=== PATIENT | female | born 1965 | race Caucasian/White ===

== ENCOUNTER → 2022-05-14 11:02 | Outpatient (CLI) | payer OTHER, SELFPAY ==
[2022-05-14 13:29] LABS: COVID19 -Nasal RAPID Negative (Negative)
== END ==
PROVIDERS: Referring Provider Orthopaedic Surgery; Visit Provider Orthopaedic Surgery
DX: Z20.822 Contact with and (suspected) exposure to COVID-19 (principal)
CPT/HCPCS: 87635; C9803

== ENCOUNTER 2022-05-16 12:30 | Day surgery (SDC) | payer OTHER, SELFPAY ==
[2022-05-07 13:33] VITALS: BMI 38.2
[2022-05-16] VITALS (13 sets, daily range): BP systolic 133–168; BP diastolic 50–95; PULSE 77–95; RESP 12–20; TEMP 35.9–36.9; O2SAT 96–99; BMI 38.2
--- NOTE | 2022-05-16 06:00 | DI.RAD.S_ITS ---
PROCEDURE: XR KNEE LT 1TO2V INDICATIONS: L TKA TECHNIQUE: Two views of the knee acquired. COMPARISON: None. FINDINGS: Bones: Patient is status post total knee arthroplasty. Hardware components are in expected positions. Visualized bony structures are intact. Soft tissues: Overlying postoperative changes are noted. IMPRESSION: Status post total knee arthroplasty with expected postoperative findings. Approved by: Raul Thomas M.D. on 05/16/2022 at 16:57
[2022-05-16] MEDS: ACETAMINOPHEN 325 MG TABLET 975 MG PO (13:29)
[2022-05-16] MEDS: CELECOXIB 200 MG CAPSULE PO (13:29)
--- NOTE | 2022-05-16 14:16 | SUR.PREOP ---
Left femoral nerve block completed by Dr Bullock. See anesthesia record.
[2022-05-16] MEDS: CEFAZOLIN 2 GM/100 ML PREMIX 100 ML IV ×2 (14:40→22:57)
[2022-05-16] MEDS: TRANEXAMIC ACID 1,000 MG VIAL 2000 MG INJ (14:45)
--- NOTE | 2022-05-16 14:57 | SUR.OPER ---
Supine on padded OR bed. Pillow under head, arms secured on padded armboards <90 degree abduction. Safety belt across torso. Non-operative leg secured with tape over blanket over lower leg. Operative leg secured in [place]. Foam padded brace at thigh of operative leg.
[2022-05-16] MEDS: MORPHINE 4 MG/ML INJ INJ (15:09)
[2022-05-16] MEDS: BUPIVACAINE LIPOSOME 266 MG/20 ML VIAL INJ (15:09)
[2022-05-16] MEDS: BUPIVACAINE 0.5% W/ EPI (PF) 30 ML VIAL INJ (15:20)
--- NOTE | 2022-05-16 16:15 | PM.OP.1 ---
Operative Date/Time/Diagnoses Date of procedure: 05/16/22 Time of procedure: 16:15 Pre-op diagnosis: Left knee osteoarthritis Post-op diagnosis: same Procedure & Clinicians Procedure: Left total knee replacement Same procedure as scheduled: Yes Indications: The patient has had progressively worsening left knee pain with radiographic changes consistent with arthritis. Non-operative management has failed and the patient has requested total knee replacement. The risks, benefits and alternatives to surgery were discussed with the patient prior to proceeding. Risks discussed included, but were not limited to, failure to relieve pain, stiffness, infection, nerve damage, deep venous thrombosis, pulmonary embolism, stroke, coma, heart attack, permanent paralysis and , as well as the potential need for eventual revision of the prosthetic. Surgeon: Gómez Edwards Rn Neurology: Citlaly Hathaway Yes if Unassisted: No Anesthesia Type: General, Spinal and Local Operative Notes Findings: Severe medial and moderate patellofemoral osteoarthritis. Closure Type: primary Specimen(s): none sent Prosthetic devices, grafts, tissues, transplants, or devices: Implants used in this procedure were manufactured by the [employer] and [email or web address] and included the BCS II Journey total knee replacement with a size 7 left non porous tibial base plate, a 9 mm cross-linked polyethylene tibial insert, a size 8 Oxinium left femoral component and a 38 mm oval Cami II patella. Applied: implant(s) Estimated Blood Loss (mL): 25 Blood products transfused: none Tourniquet time (min): 56 Procedure in detail: The patient was seen in the pre-operative area, where the left knee was identified as the operative site and this was marked with my initials. The patient received pre-operative antibiotics, and was taken to the operating room and placed on the operative table in the supine position. After satisfactory anesthesia, a radio time buyer out was performed. The left leg was encircled with a tourniquet about the proximal thigh, and the leg was prepared from the toes to the tourniquet with ChloroPrep in the usual fashion and draped through sterile drapes. The leg was elevated and exsanguinated with Eschmark bandage and the tourniquet inflated to 250 mmHg pressure. The knee was approached through an approximately 18 cm incision centered over the patella and carried into the knee through a medial parapatellar arthrotomy. The anterior osteophytes and soft tissues were removed. The rotational landmarks of Rockwall's line and the transepicondylar axis were marked on the femur with electrocautery, and intramedullary guide holes for the femur and tibia were created. The distal femoral cut was made in 6 degrees of valgus using the intramedullary guide at the primary cut setting. The proximal tibial cut was then made using the intramedullary guide, taking 9 mm of bone off the less involved side. The extension gap was checked and the rotation of the femoral component confirmed with the gap balancing blocks. The anterior, posterior and chamfer cuts were then made. The posterior osteophytes and soft tissues were then removed. The posterior capsule was injected with part of a mixture of 60 ml 0.25% Marcaine mixed with 20 ml Exparel and 4 mg of morphine for post-operative pain control. The remainder of this mixture was injected into the capsule and subcutaneous tissues during cement curing. The tibia was prepared with the rotation set by an extra medullary guide. Trial tibial and femoral components were then placed and the intercondylar notch cut through the femoral trial. Range of motion was 0-135 degrees, with good stability throughout the range. The patella was then cut to accommodate the patellar prosthetic. There was no need for a lateral release. The trials were then removed, and the femoral hole plugged with a bone plug. The bone was prepared with pulsatile lavage, and dried with a sponge. Cement was applied and the final prosthetics placed. Excess cement was removed during and after cement curing. After confirming there was no extruded cement posteriorly, the final tibial insert was placed. The knee was copiously irrigated and the tourniquet deflated. Hemostasis was obtained. The capsule was closed with interrupted # 2 polyester sutures. The subcutaneous layer was closed with 3-0 Vicryl, and the skin with a running 3-0 V-Lock suture and Dermabond. An Aquacel Ag dressing was applied and the patient was taken to recovery having tolerated the procedure well. The services of oRmeo Ignacio were required as a skilled licensed physical therapy assistant to provide exposure, positioning and retraction to protect vital structures during this procedure. Without the assistance of a skilled certified ophthalmic surgical assistant the procedure could not have been performed safely and expediently. Complications: none Post-operative Condition: stable Disposition: PACU Plan for aftercare: The patient will be maintained on a standard total knee replacement protocol with weight bearing as tolerated. The patient will receive aspirin and sequential compression devices for DVT prophylaxis. The patient will be discharged home when safe for the home environment.
[2022-05-16] MEDS: PROGESTERONE, MICRONIZED 100 MG CAPSULE PO (18:27)
[2022-05-16] MEDS: LACTATED RINGERS 1,000 ML 100 ML IV (18:27)
[2022-05-16] MEDS: ATORVASTATIN 20 MG TABLET PO (18:27)
[2022-05-16] MEDS: OXYCODONE IR 5 MG TABLET PO (18:36)
[2022-05-16] MEDS: ACETAMINOPHEN 325 MG TABLET 650 MG PO (18:36)
[2022-05-16] MEDS: HYDROMORPHONE 0.5 MG INJ 0.2 MG IV (19:48)
[2022-05-16] MEDS: lisinopriL 10 MG TABLET PO (21:26)
[2022-05-16] MEDS: ASPIRIN EC 81 MG TABLET PO (21:26)
[2022-05-16] MEDS: IBUPROFEN 400 MG TABLET PO (21:26)
[2022-05-16] MEDS: DOCUSATE 100 MG CAPSULE PO (21:26)
--- NOTE | 2022-05-16 23:54 | PC.NURSE ---
Patient is alert and oriented. Breath sounds CTA with RA sat of 97%. HRR. Denies nausea. BT hypoactive and has not yet passed flatus. Had not voided yet following surgery but did get up to BSC at 2245 and voided 1150cc urine; denies dysuria. Is able to turn herself in bed and was able to get out of bed with 1 assist + walker. CMS in left leg is intact; denies numbness, has good pulse and able to lift leg out of bed but has limited ROM in knee. Aquacel dressing wrapped with guero to left knee is CDI. Had 7/10 pain at change of shift and was medicated with IV Dilaudid after po oxycodone was ineffective and now pain has been well controlled. Is wearing bilateral calf SCD's. Fall risk score is moderate and patient calls appropriately for assistance so alarm is not currently in use.
[2022-05-17] VITALS (7 sets, daily range): BP systolic 87–133; BP diastolic 35–59; PULSE 67–88; RESP 16; TEMP 36.1–36.9; O2SAT 95–97
[2022-05-17] MEDS: IBUPROFEN 400 MG TABLET PO ×4 (00:29→12:15)
[2022-05-17] MEDS: ACETAMINOPHEN 325 MG TABLET 650 MG PO ×3 (00:29→11:10)
[2022-05-17] MEDS: OXYCODONE IR 10 MG TABLET PO (04:00)
[2022-05-17] MEDS: SODIUM CHLORIDE 0.9% FLUSH 10 ML IV ×2 (06:23→08:11)
[2022-05-17] MEDS: CEFAZOLIN 2 GM/100 ML PREMIX 100 ML IV (06:23)
[2022-05-17] MEDS: THYROID, PORK 30 MG TABLET 180 MG PO (06:23)
[2022-05-17 07:00] LABS: Hematocrit 36.6 % (36-46)
--- NOTE | 2022-05-17 07:48 | PM.DS.1 ---
History of Present Illness History of Present Illness Date Patient Seen: 05/17/22 Time Patient Seen: 07:48 Chief complaint: L TKA Narrative: The history and physical is contained in the chart in a previously completed note. Please refer to that note for this information. Discharge Providers Provider Date of admission: May 16, 2022 Discharge Date: 05/17/22 Consults: 05/16/22 16:59 Consult to Discharge Planning Routine Comment: Consult to Physical Therapy Evaluate & Treat Comment: Physician Instructions: postop TKA protocol Discharge provider: Gómez Edwards MD Summary Hospital Course Discharge Diagnosis: Osteoarthritis of the left knee Hospital Course: The patient was admitted to the hospital and taken directly to the operating room on May 16, 2022. She underwent a left total knee replacement without complications. On postoperative day 1 she was comfortable. She had been able to ambulate to the bathroom without assistance. At the time of this dictation it is anticipated she will be discharged later this morning. Status at Discharge Cognitive/behavioral status at discharge: at baseline, oriented Functional status at discharge: uses cane/walker Overall status at discharge: patient is progressing back to baseline Time Spent with Patient Time spent: Less than 30 minutes Exam Vital Signs (past 8 hours): - 05/17/22 00:30 05/17/22 06:29 Temperature 97.8 F 98.5 F Pulse Rate 67 73 Respiratory Rate 16 16 Blood Pressure 133/51 L 114/59 L Pulse Oximetry 95 95 Oxygen Flow Rate 0 0 Oxygen Delivery Method Room Air Oxygen Flow Rate 0 Narrative Exam Narrative: Left knee wound is dressed with no drainage on the bandage. Calf is soft. Light touch and motion are intact in the left lower extremity. Objective Labs Result Diagrams: 05/17/22 06:29 Labs: Laboratory Results - last 24 hr 05/17/22 06:29 Hgb 12.0 Hct 36.6 PFSH Medical History (Updated 05/07/22 @ 14:17 by Rachele Sahni RN) ADHD Anxiety Depression GERD (gastroesophageal reflux disease) HLD (hyperlipidemia) HTN (hypertension) IBS (irritable bowel syndrome) Osteoarthritis Surgical History (Updated 05/07/22 @ 14:17 by Rachele Sahni RN) Cataract extraction status, left eye (2020) History of hysteroscopy (2010) Hx of appendectomy (1991) Hx of arthroscopy of left knee (2005) Hx of cholecystectomy (1994) Hx of hernia repair (1997) Hx of LASIK (1998) Hx of repair of left rotator cuff (2014) Hx of repair of right rotator cuff (2011) Hx of thyroidectomy (2014) Status post tonsillectomy and adenoidectomy (1974) Social History household members: spouse Smoking Status: Never smoker alcohol intake: current Discharge Assessment & Plan Assessment and Plan Assessment: Stable postoperative day 1 status post left total knee replacement. She has good pain control. She is showing good return of function. Plan of Treatment: Discharge to home today. The patient was given her postoperative pain medications at her preoperative appointment. She will resume all her preoperative medications. She will use aspirin 81 mg b.i.d. for DVT prophylaxis. She will follow up at my office in 10-14 days. Discharge Plan Discharge Plan Patient Disposition: Home Discharge orders & Medications Discharge Orders: Discharge (Order); Ordered 05/17/22 Ordered By: Gmóez Edwards Prescriptions: New acetaminophen 325 mg Tablet 650 mg PO Q6HR Qty: 250 0RF aspirin 81 mg Tablet,Delayed Release (Dr/Ec) 81 mg PO BID Qty: 84 0RF oxycodone 5 mg Tablet 5 mg PO Q4H PRN (Reason: Pain, Moderate (4-6)) Qty: 40 0RF Continued atorvastatin 20 mg Tablet 20 mg PO QPM estradiol 0.075 mg/24 hr Patch Semiweekly 1 patch TRANSDERMAL 2XW Rx Instructions: apply 1 patch for 3 days alternating with 1 patch for 4 days each week for 3 wks per 4-wk cycle cetirizine [Zyrtec] 10 mg Tablet 10 mg PO DAILY ibuprofen 200 mg Capsule 400 mg PO Q6H PRN (Reason: Pain) lisinopril 10 mg Tablet 10 mg PO QPM progesterone micronized 100 mg Capsule 100 mg PO QPM Rx Instructions: off 7 days; repeat cycle bupropion HCl 300 mg Tablet Extended Release 24 Hr 300 mg PO QAM [place] Thyroid 180 mg Tablet 180 mg PO QPM Follow up/Referrals: Gómez Edwards MD [Physician] - As previously scheduled Diet/Activity/Treatments Diet: Diet as Tolerated and Regular Activity: You may bear weight as tolerated on your left leg. Cold/Heat Therapy: You may apply ice to the left knee for 15 minutes of every hour for pain control. Skin/Wound/Dressing Care Report to your healthcare provider any signs of infection, such as:: chills, fever, night sweats, increased pain, unusual drainage and unusual redness Dressing: You may remove the Ji wrap 3 days after surgery and shower normally with the deeper dressing in place. Leave that dressing in place until your postoperative follow-up. If the central strip of the dressing should becomes saturated with either water or blood, please call the office to have it evaluated. Visit Report/Discharge Packet Instructions: DI for Knee Replacement Stand Alone Forms: Surgery Discharge Discharge Data Attending Provider: Gómez Edwards Quality VTE Deep Vein Thrombosis/Pulmonary Embolism Present on Admission: No
[2022-05-17] MEDS: OXYCODONE IR 5 MG TABLET PO ×2 (08:09→12:15)
[2022-05-17] MEDS: polyethylene glycoL 3350 17 GM POWD.PACK PO (08:10)
[2022-05-17] MEDS: LORATADINE 10 MG TABLET PO (08:10)
[2022-05-17] MEDS: buPROPion XL 150 MG TAB 300 MG PO (08:10)
[2022-05-17] MEDS: DOCUSATE 100 MG CAPSULE PO (08:10)
[2022-05-17] MEDS: ASPIRIN EC 81 MG TABLET PO (08:10)
--- NOTE | 2022-05-17 09:51 | PT.IIE ---
Current Diagnoses Unilateral primary osteoarthritis, left knee (05/16/22) Surgery Performed Operation Date: 05/16/22 14:30 Actual Procedures p Total Knee Arthroplasty(Left) - Gómez Edwards MD Surgical History (Last Updated 05/07/22 @ 14:17 by Rachele Sahni, RN) Cataract extraction status, left eye (2020) History of hysteroscopy (2010) Hx of appendectomy (1991) Hx of arthroscopy of left knee (2005) Hx of cholecystectomy (1994) Hx of hernia repair (1997) Hx of LASIK (1998) Hx of repair of left rotator cuff (2014) Hx of repair of right rotator cuff (2011) Hx of thyroidectomy (2014) Status post tonsillectomy and adenoidectomy (1974) Medical History (Last Updated 05/07/22 @ 14:17 by Rachele Sahni, TASIA) ADHD Anxiety Depression GERD (gastroesophageal reflux disease) HLD (hyperlipidemia) HTN (hypertension) IBS (irritable bowel syndrome) Osteoarthritis Physical Therapy Inpatient Evaluation/Re-Eval M1 PT/OT-IP Prior Functional Status Start: 05/17/22 13:32 Freq: NEEDED Status: Active Protocol: Document 05/17/22 09:51 AB (Rec: 05/17/22 13:44 AB [id number]) Medical Review Prior Functional Status Medical History Reviewed Yes Communication able to make needs known Mobility and Gait stated that she is independent with all mobilities and ambulation without AD Social History Household Members spouse Living Arrangements House Number of Floors (Floors) Two Floors Number of Stairs To Enter/Railing? without steps to enter the house Has 2 steps down to the studio : L shelving descending Home Environment High Toilet,Walk in Shower Home Equipment Front Wheel Walker,Straight Cane,Crutches,Hand Held Shower Additional Social History Comment pt has an adjustable bed M2 PT-IP Current Condition Start: 05/17/22 13:32 Freq: NEEDED Status: Active Protocol: Document 05/17/22 09:51 AB (Rec: 05/17/22 13:44 AB [id number]) Physical Therapy Current Condition Current Condition Evaluation Date 05/17/22 Treatment Diagnosis s/p L TKA; difficulty in walking Onset Date 05/16/22 M3 PT-IP Subjective Start: 05/17/22 13:32 Freq: NEEDED Status: Active Protocol: Document 05/17/22 09:51 AB (Rec: 05/17/22 13:44 AB [email or web address]) Subjective Physical Therapy Visit Type Type Initial Evaluation Visit Start Time 09:51 Visit Stop Time 10:50 Total Visit Minutes 59 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 of 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 0 Physical Therapy Visit Comments Patient Comments agreeable to do PT Therapy Pain Assessment Pain When Pain Assessed At Rest Pain Present Pain Present Pain Reported Location Left Knee Intensity 4 Scale Used Numeric (0 - 10) Pain Management Techniques Apply Cold,Distraction, Modification of Treatment,Re- positioning,Timing of Activity with Medications M4 PT-IP Mobility and Gait Start: 05/17/22 13:32 Freq: NEEDED Status: Active Protocol: Document 05/17/22 09:51 AB (Rec: 05/17/22 13:44 AB [email or web address]) PT-Bed Mobility Assessment Supine to Sit Supine to Sit Standby Assistance PT-Transfer Assessment Sit to and From Stand Sit to and from Stand Contact Guard Assistance,1 Person Assistance Equipment Transfer Assistive Device Gait Belt,Front Wheeled Walker Orthotic/Prosthetic Devices or Brace: No Transfers Transfer Destination Chair Transfer Technique ambulated Transfer Ability Level of Assist Standby Assistance,Contact Guard Assistance,1 Person Assistance,Use of Upper Extremities Comments Mobility Comments BP in supine: 128/46. heel slide completed prior to mobility and post-op folder provided and discussed with pt and spouse. completed supine to sit SBA. no c/o dizziness. BP checked in sittin/76. completed sit to stand CGA and ambulated in room using FWW CGA ~ 12 ft . pt sat on chair. caregiver training conducted. educated spouse on how to use safety belt and how to assist pt. also educated on stair climbing techniques. spouse was able to put safety belt on pt. assisted pt with sit to stand CGA and ambulated pt ~ 20 ft using fWW CGA. pt completed up/down step using L rail+ SPC with spouse assisting CGA. pt completed x2 sets. pt ambulated in hallway and back to the room ~ 50 ft using FWW SBA. pt then c/o dizziness. BP checked: 87/35. elevated LE and reclined pt. BP checked again : 107/49. NAC in room and informed nurse. positioned pt on the chair with call light and table within reach. Gait Assessment Gait Gait Assistance Required: Standby Assistance,Contact Guard Assist Distance (Feet) 50 Able to Maintain Weight Bearing Status Yes During Gait Assistive Devices Assistive Device Gait Belt,Front Wheeled Walker Orthotic/Prosthetic Devices or Brace: No Gait Deviations General Gait Pattern Antalgic,Decreased Stride Length,Decreased Feet Clearance Factors Limiting Gait Function Factors Limiting Gait Function Decreased Activity Tolerance, Decreased Strength,Limited Range of Motion,Pain,Poor Balance Stair Climbing Assessment Evaluation Level of Assist On Stairs Contact Guard Assistance,1 Person Assistance Devices Stair Climbing Assistive Devices Straight Cane,Left Railing Technique/Endurance Stair Climbing Direction Ascend and Descend Stair Climbing Technique Step to Step Number of Steps Climbed 1 Query Text: Stair Climbing Set # Repetitions (reps) 2 PT-Balance Assessment Sitting Balance and Reactions Static Sitting Balance Ability Normal Dynamic Sitting Balance Ability Good Standing Balance and Reactions Static Standing Balance Ability Fair Dynamic Standing Balance Ability Fair Device Used FWW M5 PT-IP Objective Assessments Start: 05/17/22 13:32 Freq: NEEDED Status: Active Protocol: Document 05/17/22 09:51 AB (Rec: 05/17/22 13:44 AB [email or web address]) Orientation Orientation/Cognition Level of Alertness Alert Orientation Name,Place,Situation Language Function Ability No Deficits Noted Memory Description No Deficits Noted Gross Range of Motion Lower Extremity ROM Assessment Left Impaired Impairments L knee flexion: ~ 80 deg L knee extension: ~ 25 deg less to 0 Strength Lower Extremity Strength Assessment Left Impaired Hip 4-/5 Knee 4-/5 Coordination Assessment Gross Coordination Gross Coordination WNL Sensation Assessment Sensation Gross Sensation WNL Muscle Tone Muscle Tone WNL Yes M6 PT-IP Treatment Start: 05/17/22 13:32 Freq: NEEDED Status: Active Protocol: Document 05/17/22 09:51 AB (Rec: 05/17/22 13:44 AB [email or web address]) Physical Therapy Treatment Exercises Exercises Heel Slides Education Education Provided Precautions,Weight Bearing Status,Post-Op Packet,Safety M7 PT-IP Assessment and Plan Start: 05/17/22 13:32 Freq: NEEDED Status: Active Protocol: Document 05/17/22 09:51 AB (Rec: 05/17/22 13:44 AB [email or web address]) PT Summary Assessment and Plan Potential Rehabilitation Potential Good Status of Condition at Evaluation Evolving Summary Impairments Pain,ROM,Strength,Balance, Coordination,Sensation,Tone, Cognition,Bed Mobility, Transfers,Gait,Activity Tolerance Assessment Summary pt requiring sBA to CGA with mobility using FWW. caregiver training conducted and spouse was able to assist pt at home. Pt just had low BP towards end of PT session with c/o dizziness. pt may go home when medically stable. Goals Bed Mobility Goal Independent Transfer Goal Independent,Front Wheeled Walker Gait Goal Independent,Front Wheel Walker Gait Distance 200 Other Goals up/down 2 steps L rail + SPC SBA Days to Meet Goals 5 Frequency of Treatment Frequency Of Treatment Twice a Day Treatment Plan Physical Therapy Treatment Plan Bed Mobility Training,Transfer Training,Gait Training, Therapeutic Exercise,Balance Retraining,Post Op Education, Discharge Planning,Hot or Cold Pack,Neuromuscular Re-ed, Coordination Retraining,Manual Therapy Weight Bearing Status Weight Bearing Status Weight Bear as Tolerated Allowed Weight Bearing Amount (enter % LLE WBAT or #) (%) Recommendations To Nursing Amount of Assist Needed 1 Person Assist Discharge Recommendations PT Discharge Recommendations Home with Assistance, Outpatient PT Transportation Needs at Discharge Private Vehicle
--- NOTE | 2022-05-17 14:58 | CM.DANOTE ---
Initial DCP Assessment Note Pt is a 57 yo female, resident of [place], now POD#1 from Left knee surgery by Dr Edwards PCP: Charly Vazquez Payer: Jesus Gaitan Reviewed chart, pt discussed in multidisciplinary rounds this morning. Therapy has cleared pt for return home w/family to assist and pt has planned for home, DC order from Ortho has already been initiated this morning. Patient eager to return home today, denies needs from this WEB DESIGN SPECIALIST No barriers identified at this time to patient's safe discharge home w/family to assist; close outpatient f/u recommended. DION Dinero Discharge Planning/Care Management CM Discharge Assessment Start: 05/17/22 14:49 Freq: Status: Active Protocol: Document 05/17/22 14:49 GENE (Rec: 05/17/22 14:58 GENE [id number]) Discharge Planning Assessment Assigned Liner Inserter DION Bazzi DPOA/Assigned Designee Name Antonio Ken, spouse Contact Information [phone] Advance Directives? Yes Advance Directives on File No History Provided By Patient Has Patient been admitted in last 30 No days? Prior Living Arrangements House Household Members spouse Type of transporation used prior to Drives own vehicle admit Independent with ADL's Yes Is patient alert and oriented? Yes Patient/Family Preference OP PT Therapy Barriers to Discharge No Discharge Plan Home Transportation Arrangement Spouse Referrals Initiated None needed
== END 2022-05-17 12:47 | disposition home or self-care (01) ==
LOC: OR 12:32 → AC 15:21
PROVIDERS: Referring Provider Orthopaedic Surgery; Visit Provider Orthopaedic Surgery
PROC: 0SRD0JZ Replacement of Left Knee Joint with Synthetic Substitute, Open Approach (ICD-10-PCS; CPT 27447; principal; 2022-05-16 14:30)
DX: M17.12 Unilateral primary osteoarthritis, left knee (principal); G89.18 Other acute postprocedural pain; E66.9 Obesity, unspecified; Z68.38 Body mass index [BMI] 38.0-38.9, adult
CPT/HCPCS: 27447; 36415; 64450; 73560; 85014; 85018; 97162; 97530; C1776; C1713; C9290; J0690; J1100; J1170; J2270; J2405; J2704; J3010